=== PATIENT | male | born 1985 | race Caucasian/White ===

== ENCOUNTER 2017-04-04 16:31 | Emergency (ER) | payer OTHER ==
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
[2017-04-04 17:12] VITALS: BP 140/95; PULSE 62; TEMP 97.4; BMI 31.8
[2017-04-04] MEDS ORDERED: IBUPROFEN 600 MG TABLET (FP) PO ONE (17:47)
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
== END 2017-04-04 17:53 | disposition home or self-care (01) ==
LOC: JERFT 16:31 → JER 16:31 → JERFT 17:53
DX: S29.8XXA Other specified injuries of thorax, initial encounter (principal); V49.59XA Passenger injured in collision with other motor vehicles in traffic accident, initial encounter; Y92.414 Local residential or business street as the place of occurrence of the external cause; Y99.0 Civilian activity done for income or pay; Y93.89 Activity, other specified
CPT/HCPCS: 99281-25

== ENCOUNTER 2019-12-06 11:12 | Emergency (ER) | payer OTHER ==
[2019-12-06 11:15] VITALS: BP 142/91; PULSE 73; TEMP 98.2; BMI 33.2
[2019-12-06] MEDS ORDERED: IBUPROFEN 600 MG TABLET (FP) PO ONE ×2 (11:27→11:28)
--- NOTE | 2019-12-06 11:29 | PDOC ---
History of Present Illness - General Chief Complaint: Injury Stated Complaint: RT KNEE INJURY Time Seen by Provider: 12/06/19 11:22 - History of Present Illness Initial Comments: 12/06/19 12:34 34yo male with no signif pmhx with R knee pain today. Pt works for [employer] and was stepping up into the truck when his foot slipped and he landed on the R foot and felt his R knee "lock out" with acute pain the R inferolateral aspect of the knee. Pt denies falling. Denies hip or ankle pain. Pt states he was able to walk after the event and ambulated into the ER. Pt denies paresthesias. Pt with an old abrasion to the knee from a fall a few week ago. Scab in place and no ttp over the abrasions. Pt denies cp/sob. No other somatic complaints other than R knee pain. Past History - Medical History Allergies/Adverse Reactions: Allergies Allergy/AdvReac Type Severity Reaction Status Date / Time No Known Allergies Allergy Verified 12/06/19 11:12 Home Medications: Ambulatory Orders NK [No Known Home Medication] 06/15/15 COPD: No Other medical history: pt denies - Surgical History Orthopedic Surgery: No - Immunization History Td Vaccination: (tetanus up to date) TDAP Vaccination: Yes Immunization Up to Date: Yes - Psycho-Social/Smoking History Smoking Status: No Smoking History: Never smoked Years of Tobacco Use: 0 Have you smoked in the past 12 months: No Number of Cigarettes Smoked Daily: 0 Cigars Per Day: 0 Information on smoking cessation initiated: No - Substance Abuse Hx (Audit-C & DAST Scrn) How often the patient has a drink containing alcohol: Monthly or less Score: In Men: 4 or > Positive; In Women: 3 or > Positive: 1 Screen Result (Pos requires Nsg. Audit-10AR): Negative In the last yr the pt used illegal drug/Rx for NonMed reason: No Score: Yes response is considered Positive: 0 Screen Result (Positive result requires Nsg. DAST-10): Negative Review of Systems - Review of Systems Able to Perform ROS?: Yes Is the patient limited Gambian proficient: No Constitutional: No: Chills, Fever HEENTM: No: Nose Congestion, Throat Pain Respiratory: No: Cough, Shortness of Breath Cardiac (ROS): No: Chest Pain, Lightheadedness, Palpitations ABD/GI: No: Diarrhea, Nausea, Vomiting, Abdominal cramping : No: Burning, Dysuria Musculoskeletal: Yes: Joint Pain. No: Back Pain, Muscle Pain, Muscle Weakness, Neck Pain Integumentary: No: Bruising Neurological: No: Headache, Numbness, Paresthesia, Weakness, Unsteady Gait, Ataxia All Other Systems: Reviewed and Negative *Physical Exam - Vital Signs Last Vital Signs Temp Pulse Resp BP Pulse Ox 98.2 F 73 18 142/91 100 12/06/19 11:12 12/06/19 11:12 12/06/19 11:12 12/06/19 11:12 12/06/19 11:12 - Physical Exam General Appearance: Yes: Nourished, Appropriately Dressed. No: Apparent Distress HEENT: positive: EOMI, Normal Voice Neck: positive: Supple Respiratory/Chest: positive: Lungs Clear, Normal Breath Sounds. negative: Chest Tender, Respiratory Distress Cardiovascular: positive: Regular Rhythm, Regular Rate, S1, S2. negative: Edema Gastrointestinal/Abdominal: positive: Soft. negative: Guarding, Rebound, Tenderness Musculoskeletal: positive: Normal Inspection. negative: Decreased Range of Motion Extremity: positive: Normal Capillary Refill, Tender (R inferolateral aspect of the knee joint, no effusion palpated, abrasion over the medial and anterior aspect of the knee with a scab in place, + ttp and pain with varus stress testing, mild laxity with anterior drawer test, but neg lochmans test, able to fully extend the knee, pain with full flexion at the inferolateral aspect of the knee, no ttp across the tibial plateau, pulses intact distal, no erythema, no swelling, no warmth). 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 -pt states was stepping up into the truck and his foot slipped, landing on his R foot flat and feeling he "locked out" his r knee -pain the R inferolateral aspect of the knee -able to ambulate -denies falling -pt able to range the knee, but ttp with flexion of the knee, pain with varus knee stress and slight laxity with anterior drawer, but neg lochmans test -will send for xray -motrin abrasion to knee that are old and have scabs from a few weeks ago -will monitor and reassess 12/06/19 12:45 xray does not show acute fx discussed ligament and cartilage damage in full detail discussed ice, knee immobilizer, discussed RICE, discussed ortho follow up, discussed not going back to work today answered all questions discussed pain control at home stable for dc to home Discharge - Discharge Information Problems reviewed: Yes Clinical Impression/Diagnosis: Knee pain, right Condition: Stable Disposition: HOME - Admission No - Follow up/Referral Referrals: Joe Vasquez MD [Primary Care Provider] - Finesse Valadez MD [Staff Physician] - Oskar Mata MD [Staff Physician] - Emilio Manrique DO [Staff Physician] - - Patient Discharge Instructions Patient Printed Discharge Instructions: DI for Knee Pain, How to Use a Knee Immobilizer Additional Instructions: Please take tylenol or motrin as needed for pain. Please call the orthopedist and schedule a follow up appointment. You may need further imaging of the knee to evaluate the cartilage and ligaments of the knee joint. Please use the knee immobilizer. Please apply ice 20 min on and 20 min off. Please follow up with your PMD and occupational health at your job. Please return to the ER with any further concerns or complaints. - Post Discharge Activity Work/Back to School Note: Back to Work
== END 2019-12-06 12:58 | disposition home or self-care (01) ==
LOC: FER 11:12
DX: M25.561 Pain in right knee (principal)
CPT/HCPCS: 73564-TC-RT-FY; 99283-25

== ENCOUNTER 2020-12-10 07:20 | Emergency (ER) | payer BC ==
[2020-12-10 07:33] VITALS: BP 102/63; PULSE 87; TEMP 97.8; BMI 32.5
== END 2020-12-10 10:06 | disposition home or self-care (01) ==
LOC: JER 07:20
DX: J06.9 Acute upper respiratory infection, unspecified (principal)
CPT/HCPCS: 99283-25; C9803; U0003; U0005